=== PATIENT | male | born 1945 | race Caucasian/White ===

== ENCOUNTER → 2019-05-30 | Outpatient (CLI) | payer BC ==
[~2019-05-30] MED LIST: AMLO-150 PO; VITA1TAB19 PO
== END | disposition home or self-care (01) ==
LOC: STAR 09:31
PROVIDERS: ATTEND Surgery
DX: Z01.818 Encounter for other preprocedural examination (principal); S83.242A Other tear of medial meniscus, current injury, left knee, initial encounter; X58.XXXA Exposure to other specified factors, initial encounter; Y93.89 Activity, other specified; Y92.89 Other specified places as the place of occurrence of the external cause; Y99.8 Other external cause status
CPT/HCPCS: 93005

== ENCOUNTER 2019-06-05 13:26 | Day surgery (SDC) | payer BC ==
[~2019-06-05] VITALS: Ht 170.2 cm; Wt 73.2 kg
[~2019-06-05 13:26] MED LIST changes: +EPHEDRINE 50 MG/ML, 1ML ONE; +PHENYLEPHRINE 10 MG/ML ONE; +SUCCINYLCHOLINE 20 MG/ML, 10ML ONE
[2019-06-05] MEDS ORDERED: GABAPENTIN 300 MG CAPSULE PO STA (14:09)
[2019-06-05] MEDS ORDERED: ACETAMINOPHEN 500 MG TABLET PO STA (14:09)
[2019-06-05] MEDS ORDERED: LACTATED RINGERS 1,000 ML IV SCH ×3 (14:10→23:00)
[2019-06-05] MEDS ORDERED: CROM13SP5 NS (14:14)
[2019-06-05] MEDS ORDERED: FENTANYL PF 250 MCG/5ML ONE (14:15)
[2019-06-05] MEDS ORDERED: NEOSTIGMINE 1 MG/ML, 10ML ONE (14:23)
[2019-06-05] MEDS ORDERED: CEFAZOLIN 1,000 MG ONE (14:23)
[2019-06-05] MEDS ORDERED: PROPOFOL 10 MG/ML, 20ML ONE (14:23)
[2019-06-05] MEDS ORDERED: GLYCOPYRROLATE 0.2MG/1ML, 5ML ONE (14:23)
[2019-06-05] MEDS ORDERED: ROCURONIUM 10MG/ML,5ML ONE (14:23)
[2019-06-05] MEDS ORDERED: HALOPERIDOL 5 MG/ML IV PRN (16:00)
[2019-06-05] MEDS ORDERED: PROMETHAZINE 25 MG SUPP PR PRN (16:00)
[2019-06-05] MEDS ORDERED: HYDROmorphone 2 MG/ML, 1ML IVPush PRN (16:00)
[2019-06-05] MEDS ORDERED: hydrALAzine 20 MG/ML, 1ML IV PRN ×2 (16:00→20:30)
[2019-06-05] MEDS ORDERED: FENTANYL PF 100 MCG/2ML IV PRN ×2 (16:00→20:30)
[2019-06-05] MEDS ORDERED: PROMETHAZINE 25 MG/ML, 1ML IV PRN ×2 (16:00→20:30)
[2019-06-05] MEDS ORDERED: MORPHINE SULFATE 4 MG/ML, 1ML IVPush PRN ×2 (16:00→22:00)
[2019-06-05] MEDS ORDERED: PROMETHAZINE 25 MG/ML, 1ML IM PRN ×2 (16:00)
[2019-06-05] MEDS ORDERED: LABETALOL 5MG/ML, 20ML IV PRN ×2 (16:00→20:30)
[2019-06-05] MEDS ORDERED: PROMETHAZINE 12.5 MG SUPP PR PRN (16:00)
[2019-06-05] MEDS ORDERED: ONDANSETRON ODT 8 MG PO PRN (16:00)
[2019-06-05] MEDS ORDERED: MEPERIDINE/PF 25MG/0.5ML IVPush PRN ×2 (16:00→20:30)
[2019-06-05] MEDS ORDERED: ONDANSETRON 2MG/ML, 2ML IV PRN (16:00)
[2019-06-05] MEDS ORDERED: OXYcodone 5 MG/5 ML ORAL.SOL UDC PO PRN ×2 (16:00→20:30)
[2019-06-05] MEDS ORDERED: EPINEPHRINE 1 MG/ML, 1ML ONE (16:21)
[2019-06-05] MEDS ORDERED: BUPIVACAINE/PF 0.25% ONE (16:21)
[2019-06-05] MEDS ORDERED: BACITRACIN 50,000 UNIT ONE (16:21)
[2019-06-05] MEDS ORDERED: FENTANYL PF 100 MCG/2ML ONE ×2 (19:38→20:44)
[2019-06-05] MEDS ORDERED: MIDAZOLAM 1 MG/ML, 2ML ONE (19:38)
[2019-06-05] MEDS ORDERED: ALBUTEROL SULFATE 2.5 MG/3 ML NPPB PRN (20:30)
[2019-06-05] MEDS ORDERED: KETOROLAC 30 MG/1 ML IV PRN ×2 (20:30→22:00)
[2019-06-05] MEDS ORDERED: METOCLOPRAMIDE 5 MG/ML, 2ML IV PRN (20:30)
[2019-06-05] MEDS ORDERED: ONDANSETRON 2MG/ML, 2ML IVPush PRN ×2 (20:30→22:00)
[2019-06-05] MEDS ORDERED: HYDROmorphone 1 MG/ML, 1ML INJ IV PRN (20:30)
[2019-06-05] MEDS ORDERED: OXYcodone 5 MG/5 ML ORAL.SOL UDC ONE (20:45)
[2019-06-05] MEDS ORDERED: HYDR-3652 PO (21:50)
[2019-06-05] MEDS ORDERED: HYDROcodone/APAP 5/325 TABLET PO PRN (22:00)
[2019-06-05] MEDS ORDERED: DIPHENHYDRAMINE 50 MG/ML, 1ML IVPush PRN (22:00)
[2019-06-05] MEDS ORDERED: IBUPROFEN 600 MG TABLET PO PRN (22:00)
[2019-06-06] MEDS ORDERED: MULTIVITS,STRESS FORMULA 1 TABLET PO SCH (09:00)
[2019-06-06] MEDS ORDERED: AMLODIPINE 5 MG TABLET PO SCH (09:00)
== END 2019-06-05 23:59 | disposition home or self-care (01) ==
LOC: OR 13:26 → 4NOR 21:32 → OR 23:59
PROVIDERS: ATTEND Surgery
DX: K40.90 Unilateral inguinal hernia, without obstruction or gangrene, not specified as recurrent (principal); D17.6 Benign lipomatous neoplasm of spermatic cord; I10 Essential (primary) hypertension; G89.29 Other chronic pain; M25.561 Pain in right knee; Z79.899 Other long term (current) drug therapy; Z87.442 Personal history of urinary calculi
CPT/HCPCS: 49505; C1781; J0171; J0330; J0690; J2250; J2370; J2704; J2710; J3010; J3490; J7120; G0378